=== PATIENT | male | born 1940 | race Caucasian/White ===

== ENCOUNTER 2017-07-08 12:49 | Day surgery (SDC) | payer MEDICARE ==
[2017-07-08] VITALS (7 sets, daily range): BP systolic 121–135; BP diastolic 66–74; PULSE 62–73; RESP 16–18; TEMP 97.6–98; O2SAT 93–97
[~2017-07-08] VITALS: Ht 177.8 cm; Wt 96.0 kg
[~2017-07-08 12:49] MED LIST: GLYCOPYRROLATE 1 MG/5 ML SYRINGE IV PUSH ONE; LIDOCAINE HCL 1% PF 5 ML SYRINGE OTHER ONE; NEOSTIGMINE 5 MG/5 ML SYRINGE IV PUSH ONE; PHENYLEPH/NS 1000 MCG/10 ML SYR IV ONE; PROPOFOL 200 MG/20 ML AMP IV ONE; ROCURONIUM INJ 50 MG/5 ML SYRINGE IV PUSH ONE; ePHEDrine/NS 25 MG/5 ML SYRINGE IV ONE
[2017-07-08] MEDS ORDERED: SODIUM CHLORID 0.9% 500 ML IV PRN (13:30)
[2017-07-08] MEDS ORDERED: SODIUM CHLORID 0.9% 500 ML INJ 500 ML IV SCH (13:30)
[2017-07-08] MEDS ORDERED: POVIDONE IODINE 5% (ANTISEPSIS KIT) 4 APPLICATIONS EACH NARE PRN (13:30)
[2017-07-08] MEDS ORDERED: LACTATED RINGER'S 1000 ML IV PRN (13:30)
[2017-07-08] MEDS ORDERED: CHLORHEXIDINE GLUCONATE 2 % 1 PACK (2 CLOTHS) TOPICAL PRN (13:30)
[2017-07-08] MEDS ORDERED: METOPROLOL TARTRATE 25 MG TAB PO PRN (13:30)
[2017-07-08] MEDS ORDERED: INSULIN HUMAN REGULAR 1,000 UNITS/10 ML VIAL SQ PRN (13:30)
[2017-07-08] MEDS ORDERED: LORazepam 1 MG TAB SL SCH (13:30)
[2017-07-08] MEDS ORDERED: MAGN100T2 PO (13:44)
[2017-07-08] MEDS ORDERED: FIBE625T PO (13:44)
[2017-07-08] MEDS ORDERED: FURO20TA PO (13:44)
[2017-07-08] MEDS ORDERED: JANT2.5T PO (13:44)
[2017-07-08] MEDS ORDERED: POTA10CA PO (13:44)
[2017-07-08] MEDS ORDERED: SPIR25TA PO (13:44)
[2017-07-08] MEDS ORDERED: ROSU1TAB8 PO (13:44)
[2017-07-08] MEDS ORDERED: CARV6.25 PO (13:44)
[2017-07-08] MEDS ORDERED: ASPI81TA23 PO (13:44)
[2017-07-08] MEDS ORDERED: AMIO200T PO (13:44)
[2017-07-08] MEDS ORDERED: LISI2.5T3 PO (13:44)
[2017-07-08] MEDS ORDERED: CHOL10008 PO (13:44)
[2017-07-08] MEDS ORDERED: MULT-65 PO (13:44)
[2017-07-08 13:49] LABS: AUTOMATED NEUTROPHIL # 9.8 TH/MM3 (1.8-7.7); BASOPHIL % 0.3 % (0.0-2.0); EOSINOPHIL # 0.1 TH/MM3 (0-0.4); HEMATOCRIT 46.5 % (39.0-51.0); HEMOGLOBIN 16.2 GM/DL (13.0-17.0); LYMPH % 16.3 % (9.0-44.0); LYMPHOCYTE # 2.1 TH/MM3 (1.0-4.8); MEAN CELL VOLUME 92.1 FL (80.0-100.0); MEAN CORPUSCULAR HGB CONC 34.7 % (32.0-36.0); MEAN PLATELET VOLUME 7.7 FL (7.0-11.0); MONO % 6.1 % (0.0-8.0); MONOCYTE # 0.8 TH/MM3 (0-0.9); NEUT % 76.3 % (16.0-70.0); PLATELET COUNT 237 TH/MM3 (150-450); RED BLOOD COUNT 5.05 MIL/MM3 (4.50-5.90); RED CELL DISTRIBUTION WIDTH 13.4 % (11.6-17.2); WHITE BLOOD COUNT 12.9 TH/MM3 (4.0-11.0)
[2017-07-08 14:00] LABS: INTERNATIONAL NORMALIZED RATIO 2.1 RATIO; PROTHROMBIN TIME - PATIENT 21.4 SEC (9.8-11.6)
[2017-07-08 14:06] LABS: BICARBONATE 24.9 MEQ/L (21.0-32.0); CALCIUM 8.9 MG/DL (8.5-10.1); CREATININE 0.84 MG/DL (0.60-1.30)
[2017-07-08] MEDS ORDERED: HEPARIN-NS/PF INJ 2,000 ML ONE (15:06)
[2017-07-08] MEDS ORDERED: LEVOFLOXACIN 500 MG PREMIX INJ 100 ML IV ONE (15:06)
[2017-07-08] MEDS ORDERED: ISOPROTERENOL HCL 1 MG/5 ML AMP ONE (15:31)
[2017-07-08] MEDS ORDERED: HEPARIN-D5W 25,000 U/250 ML 250 ML ONE (15:31)
[2017-07-08] MEDS ORDERED: HEPARIN SODIUM - IV 10,000 UNITS/10 ML VIAL ONE (17:19)
[2017-07-08] MEDS ORDERED: FUROSEMIDE 40 MG/4 ML VIAL ONE (17:37)
[2017-07-08] MEDS ORDERED: PROTAMINE SULFATE 50 MG/5 ML VIAL ONE (17:37)
--- NOTE | 2017-07-08 17:48 | CATHPROC ---
Travel [facility]iya HIS Report Study Information Study Number Admission Scheduled Start Study Start [id number] Jul 08 2017 12:49PM 07/08/2017 Jul 08 2017 3:02PM [place] Service Electrophysiology Study Admit Source Facility Department Other [facility] - Shift Boss Physician and Clinical Staff Initial Emmanuel Blakely Drop Forger Mabel Almeida,AIRCRAFT POWER PLANT ASSEMBLER TECH2 Other Anesthesia, TAPE SEWER Recorder Raisa Ramsey,RN Recorder Alee Cohen,YELENA Scrub Fransisca Romero,RT(R) TECH2 Procedures Performed Procedure Location (Site) Vessel Name Ablation Procedure ICE CATHETER INSERT Fem Vein (left) Femoral Vein RF Ablation LT. ATRIUM LT. [facility] Equipment Time Lead Network Architect Description Size Mfg Part Number Used/Scraped NEEDLE, TRANSSEPTAL NRG 98 [id number] 15:04 [facility] Used C1 *[id number] [employer]/ EP [id number] 15:04 KIT, TRANSDUCER / AFIB Used PACER *[id number] CATHETER, TACTICATH ABLAT BUNDLE 15:04 BUND[facility] Used 65 BUNDLE *[id number]- BUNDLE [id number] CATHETER, FR7 OPTIMA SPIRAL 15:04 BUND[facility] FR7 *[id number]- Used BUNDLE BUNDLE [id number] 15:04 BUND[employer] [facility] CATHETER, JSN, QUAD BUNDLE FR 5 *[id number]- Used BUNDLE [id number] 15:04 BUNDLE-[employer] [facility] CATHETER, JSN, QUAD BUNDLE FR 5 *[id number]- Used BUNDLE [id number] SET, COOL POINT TUBING 15:04 BUNDLE-[facility] *[id number]- Used BUNDLE BUNDLE SHEATH, FR8.5 STEERABLE SM 15:04 BUNDLE-[facility] 71CM [id number] Used 71CM BUNDLE COVER, TRANSDUCER CABLE 612-113 15:04 [employer] Used ACUNAV *[id number] 15:04 CORDIS/PACER SHEATH, FR10 ALENA 11CM FR 10 Used *[id number] 15:04 CORDIS/PACER SHEATH, FR9 ALENA 11CM FR 9 [id number] Used [id number] 15:04 [employer] PACK, CCL CUSTOM * Used *[id number] 15:04 MEDLINE PACER EL, LIMB * 2620 *[id number] Used [id number] 15:04 [facility] MEDICAL SHEATH, FR4.5 PRELUDE 11CM FR 4.5 Used [id number] 15:04 NAMIC TUBING, HIGH PRESSURE 48" 48" Used *[id number] 15:04 NAMIC TUBING, HIGH PRESSURE 48" 48" Used *[id number] 15:04 [place] [employer],WARM AIR CCL * Used *[id number] 15:04 [facility] MEDICAL ELECTRODE KIT, RUBÉN X SURFACE * Used *[id number] [id number] 15:04 [facility] MEDICAL SHEATH, EPS, FR6 FAST CATH FR 6 Used *[id number] 15:04 [facility] MEDICAL SHEATH, EPS, FR7 FAST CATH FR 7 [id number] Used [id number] 15:04 [facility] MEDICAL SHEATH, EPS, FR8 FAST CATH FR 8 Used *[id number] CATHETER, ACUNAV FR10 ICE [id number] 16:32 ANGEL LUIS FR 10 Used (ANGEL LUIS) *[id number] [facility] PAD, ELECTROSURGICAL 15:04 * [id number] *[id number] Used SURGICAL GROUNDING (BLUE) History: Allergies Allergy Reaction NKDA History: Risk Factors Hypertension Dyslipidemia Yes Yes Prior CABG Yes Labs Hgb (g/dl) Hct (%) RBC (MIL/MM3) WBC (l/cumm) Platelets (thousands) 11.60-17.00 35.00-51.00 4.00-5.90 4.00-11.00 150.00-450.00 16.0 46 5 12.9 237 Glucose (mg/dl) BUN (mg/dl) Creatinine (mg/dl) BUN:Creatinine (1:x) 74.00-106.00 7.00-18.00 0.50-1.30 10.00-20.00 94 19 0.8 23.8 Na (meq/l) K (meq/l) 136.00-145.00 3.50-5.10 137 4.1 INR (PTT:PT) 0.90-1.10 2.1 Medication Medication Total Dose (Bolus/Oral) Medication Total Dosage/Unit 1% XYLOCAINE 40 mL HEPARIN 88540 units PROTAMINE 40 mg Medications (Bolus/Oral) Medication Time Given Dosage/Unit Administered By Reason 1% XYLOCAINE 07/08/2017 4:24:34 PM 20 mL Emmanuel Haque 20 mL 1% XYLOCAINE given in lab by Emmanuel Haque in Left Groin via Subcutaneous. Ordered by Dash Haque 1% XYLOCAINE 07/08/2017 4:29:37 PM 20 mL Emmanuel Haque 20 mL 1% XYLOCAINE given in lab by Emmanuel Haque in Right Groin via Subcutaneous. Ordered by Rolly Haque. HEPARIN 07/08/2017 4:36:21 PM 13836 units Anesthesia, TAPE SEWER As per physicians ve rbal order 96439 units HEPARIN given in lab by Anesthesia, TAPE SEWER via Peripheral IV. Ordered by Emmanuel Haque. Belen son: As per physicians verbal order. HEPARIN 07/08/2017 5:20:55 PM 2000 units Anesthesia, TAPE SEWER As per physicians joshua bal order 2000 units HEPARIN given in lab by Anesthesia, TAPE SEWER via Peripheral IV. Ordered by Emmanuel Haque. Reas on: As per physicians verbal order. PROTAMINE 07/08/2017 5:37:28 PM 40 mg Anesthesia, TAPE SEWER As per physicians verb al order 40 mg PROTAMINE given in lab by Anesthesia, TAPE SEWER via Peripheral IV. Ordered by Emmanuel Haque. Reason: As per physicians verbal order. Medication (Drip) Medication Time Given Dosage/Unit Concentration/Unit Diluent (ml) Solution HEPARIN DRIP 07/08/2017 4:50:00 PM 1000 units/hr 92194 units 250 D5W 1000 units/hr HEPARIN DRIP given in lab by Anesthesia, TAPE SEWER via Peripheral IV. Pump/Drip Flow = 10 ml /hr [place] [address] units in 250 ml. Ordered by Hanscy. Shabnam Reason: As per physicians verbal order. ISUPREL 07/08/2017 5:22:00 PM 10 mcg/min 1 mg 250 NaCl .9 10 mcg/min ISUPREL given in lab by Anesthesia, TAPE SEWER via Peripheral IV. Pump/Drip Flow = 150 ml/hr usi ng NaCl .9 with a concentration of 1 mg in 250 ml. Ordered by Emmanuel Haque. Reason: As per physicians verbal order. LEVAQUIN 07/08/2017 3:30:47 PM 100 mL/hr 500 100 NaCl .9 100 mL/hr LEVAQUIN given in lab by Anesthesia, TAPE SEWER in Right Wrist via Peripheral IV. Pump/Drip Flow = 0 ml/hr using NaCl .9 with a concentration of 500 in 100 ml. Ordered by Emmanuel Haque. Reason: As per physicians verbal order. Initial Case Assessment Cardiovascular HR Rhythm NIBP Chest Pain 58 sb 130/70 0 Edema Present Skin color Skin None Normal Warm Dry Circulatory - Right Pulses Dorsalis Pedis 2 Scale (0,1,2,3,4,d) Circulatory - Left Pulses Dorsalis Pedis 2 Scale (0,1,2,3,4,d) Circulatory - Lower Extremities Color Lower Right Color Lower Left Normal Normal Neurological State Oriented to time-place- Alert Moves all extremities person Respiration - General Respiration Rate SpO2 (%) (B/min) 20 92 Final Case Assessment Cardiovascular HR Rhythm NIBP Chest Pain 86 sr 108/63 0 Edema Present Skin color Skin None Normal Warm Dry Circulatory - Right Pulses Dorsalis Pedis 2 Scale (0,1,2,3,4,d) Circulatory - Left Pulses Dorsalis Pedis 2 Scale (0,1,2,3,4,d) Circulatory - Lower Extremities Color Lower Right Color Lower Left Normal Normal Neurological State Drowsy Moves all extremities Respiration - General Respiration Rate SpO2 (%) (B/min) 14 100 Chronological Log Time Study Chronological Log 15:16:42 Patient arrived via Bed. 15:16:45 Patient Name, D.O.B, / Armband Verified By R.N. 15:16:47 Patient has been NPO for More than 6Hrs. 15:16:47 Consent signed by the physician and the patient and verified by the Shift Boss staff. 15:16:49 Pre-op and post- op instructions given; patient acknowledges understanding of instructions. 15:17:09 Presedation assessment performed by Shift Boss RN. 15:17:49 History and physical on the chart 15:17:50 Verbal Stimulation=2 Physical Stimulation=2 Airway=2 Respiration=2 TOTAL=8. (0=absent, 1=li mited, 2=present) 15:18:16 Skin Breakdown- none per pt. 15:18:25 Disposable Defibrillator Pads Placed On Patient. 15:18:34 Patient Warmer Placed on the Table. 15:18:49 Caroline Prominences Protected 15:19:45 A # 20 IV was noted in the left wrist. Grade = 0 0.9% Nacl at kvo 15:19:46 A # 20 IV was noted in the Wrist (right). Grade = 0 0.9% nacl at kvo 15:19:49 Anesthesia at bedside. Assumes care of patient. 100 mL/hr LEVAQUIN given in lab by Anesthesia, TAPE SEWER in Right Wrist via Peripheral IV. Pump/Drip Flow = 0 ml/hr 15:30:47 using NaCl .9 with a concentration of 500 in 100 ml. Ordered by Emmanuel Haque. Reason: As p er physicians verbal order. Assessment: Initial Case, HR=58 BPM, Rhythm=sb, LCRA=722/70 mmhg, Chest Pain=0, Edema=None, Col or=Normal, Skin = Warm, Dry Right Pulses: Uday Ped=2 Left Pulses: Uday Ped=2 15:34:28 Lower Right Extremities: Color=Normal Lower Left Extremities: Color=Normal Neurological: State=Alert, Ox3, LAUGHLIN Respiration: Resp=20 B/min, SpO2=92 % 15:35:06 Table restraints applied according to hospital policy 15:35:57 Anethesiologist present for intubation. #14fr hoyos inserted w/o difficulty.clear yellow ur ine obtained 15:45:19 Bilateral groins prepped with 2% chlorhexidine, and draped after a 3 minute waiting time. 15:46:03 Reference ECG taken 16:09:03 Pressure channel 1 zeroed. 16:11:59 MD paged 16:14:25 MD arrived. 16:15:42 Pt's Defibrillator disabled by [facility] tech per MD order. Time Out. Correct patient, procedure, procedure equipment, site and side verified with physicia n present. Time 16:17:10 concurred by MD, individual staff and TAPE SEWER. Time Out #2 - Consents verified, patient in correct position, all results are labled and displa yed, safety precautions 16:18:31 taken, antibiotics administered. Time out concurred by MD, individual staff and TAPE SEWER in procedu re 16:18:32 Case Start 16:19:22 ODELL in progress. 16:23:01 ODELL completed. 16:24:34 20 mL 1% XYLOCAINE given in lab by Emmanuel Haque in Left Groin via Subcutaneous. Ordered by Emmanuel Haque. 16:24:52 Vascular access was obtained in the Fem Vein (left). 16:25:03 Vascular access was obtained in the Fem Vein (left). 16:25:15 Vascular access was obtained in the Fem Vein (left). 16:25:25 Vascular access was obtained in the Fem Art (left). A SHEATH, FR4.5 PRELUDE 11CM FR 4.5 was advanced into the Fem Art (left) using the Modified Marie otilio technique. 16:26:01 connected to 0.9 ns pressure bag 16:26:40 A SHEATH, EPS, FR7 FAST CATH FR 7 was advanced into the Fem Vein (left) using the Modified Seldinger technique. 16:26:55 A SHEATH, EPS, FR6 FAST CATH FR 6 was advanced into the Fem Vein (left) using the Modified Seldinger technique. 16:27:29 A SHEATH, FR10 ALENA 11CM FR 10 was advanced into the Fem Vein (left) using the Modified S eldinger technique. 16:29:37 20 mL 1% XYLOCAINE given in lab by Emmanuel Haque in Right Groin via Subcutaneous. Ordered b Emmanuel Henry. 16:29:44 Vascular access was obtained in the Fem Vein (right). 16:29:51 A SHEATH, EPS, FR8 FAST CATH FR 8 was advanced into the Fem Vein (right) using the Modified Seldinger technique. A CATHETER, JSN, QUAD BUNDLE FR 5 was advanced vis Fem Vein (left) and placed in the CS. Placem ent was visually 16:30:41 confirmed under fluoroscopy. A CATHETER, JSN, QUAD BUNDLE FR 5 was advanced vis Fem Vein (left) and placed in the HIS. Place ment was 16:31:37 visually confirmed under fluoroscopy. 16:31:53 CATHETER, ACUNAV FR10 ICE (ANGEL LUIS) FR 10 Was Postioned. A SHEATH, FR8.5 STEERABLE SM 71CM BUNDLE 71CM was exchanged in the Fem Vein (right). This was n ecessary in 16:34:09 order for catheter support. 16:35:15 Jaclyn in 8fr steerable sheath right femoral vein 35329 units HEPARIN given in lab by Anesthesia, TAPE SEWER via Peripheral IV. Ordered by Holden Haque Reason: As per 16:36:21 physicians verbal order. 16:36:50 A eps was advanced to the right atrium and passed through the septal wall to the left atriu m. 16:36:52 Jaclyn needle out A CATHETER, FR7 OPTIMA SPIRAL BUNDLE FR7 was advanced via RT. [facility] and placed in the LA. Plac ement was 16:39:52 visually confirmed under fluoroscopy. 16:40:45 Mapping in progress. 16:42:53 Activated Clotting Time Drawn 16:49:26 ACT (Normal Range 90-180) = 331 1000 units/hr HEPARIN DRIP given in lab by Anesthesia, TAPE SEWER via Peripheral IV. Pump/Drip Flow = 10 ml/hr using 16:50:00 D5[place] [address] units in 250 ml. Ordered by Emmanuel Haque. Reason: As per phjoy manzano verbal order. 16:55:44 Mapping complete. Catheter was removed A CATHETER, TACTICATH ABLAT 65 BUNDLE was advanced vis Fem Vein (right) and placed in the LA. P lacement was 16:56:07 visually confirmed under fluoroscopy. 16:56:20 RF Ablation of the LT. ATRIUM with a CATHETER, TACTICATH ABLAT 65 BUNDLE. 17:11:00 Activated Clotting Time Drawn 17:17:28 ACT (Normal Range 90-180) = 310 2000 units HEPARIN given in lab by Anesthesia, TAPE SEWER via Peripheral IV. Ordered by Emmanuel Haque . Reason: As per 17:20:55 physicians verbal order. 10 mcg/min ISUPREL given in lab by Anesthesia, TAPE SEWER via Peripheral IV. Pump/Drip Flow = 150 ml/ hr using NaCl .9 17:22:00 with a concentration of 1 mg in 250 ml. Ordered by Emmanuel Haque. Reason: As per physicians joshua bal order. 17:32:12 Isuprel off. 17:32:49 Ablation Catheter was removed A SHEATH, FR9 ALENA 11CM FR 9 was exchanged in the Fem Vein (right). This was necessary in ord er to achieve 17:34:45 vascular hemostasis. 17:34:59 Heparin off. 40 mg PROTAMINE given in lab by Anesthesia, TAPE SEWER via Peripheral IV. Ordered by Emmanuel Haque. R shankar: As per 17:37:28 physicians verbal order. 17:38:48 All Catheter(s) removed without difficulty 17:40:03 Sheath(s) left in place, secured, 0.9ns kvo connected and will be removed in Holding Area 17:41:43 Sterile dressing applied to site 17:43:47 Ablation procedure performed: AFIB. 17:43:54 EP Procedure was performed. Assessment: Final Case, HR=86 BPM, Rhythm=sr, ZYRB=520/63 mmhg, Chest Pain=0, Edema=None, Color =Normal, Skin = Warm, Dry Right Pulses: Uday Ped=2 Left Pulses: Uday Ped=2 17:44:56 Lower Right Extremities: Color=Normal Lower Left Extremities: Color=Normal Neurological: State=Drowsy, LAUGHLIN Respiration: Resp=14 B/min, HmF0=477 % 17:45:50 Case End 17:45:51 No case complications noted. 17:45:53 Cine recording checked. 17:46:04 PACU called. Spoke to Grimm. 17:46:17 Bedside Report will be given. 17:46:59 Defibrillator and ground pads removed. Skin intact. 17:55:18 Activated Clotting Time Drawn 17:55:20 Patient moved to stretcher 17:58:00 ACT (Normal Range 90-180) = 154 End Study - Contrast Media Used In Study Contrast Total Opened (mL) Total Used (mL) Total Wasted (mL) Unspecified 0 0 0 End Study - Maximum Contrast Load Max Contrast Load (mL) 622.4 End Study - Radiation Exposure Fluoro Time (minutes) 2.4 End Study - Patient Disposition Complications Transferred To Interventional Outcome No Telemetry Bed successful
[2017-07-08] MEDS ORDERED: DO NOT ADM ANY ANTICOAGULANT DRUGS PRN (18:05)
--- NOTE | 2017-07-08 18:22 | PD.CARD ---
Atrial Fibrillation Ablation PROCEDURE DATE: Jul 08, 2017 PROCEDURES PERFORMED: 1. Electrophysiology study on Isuprel infusion 2. CS cannulation 3. 3-D mapping 4. Transseptal approach 5. Right and left heart catheterization 6. Intracardiac echo 7. Radiofrequency ablation of atrial fibrillation 8. Pulmonary vein isolation 9. Posterior wall ablation 10. Mitral line creation 11. Anterior and posterior ablation INDICATIONS FOR THE PROCEDURE Mr. Castro is a 76-year-old male with hx of congestive heart failure , coronary artery disease, mitral valve replacement, atrial fibrillation, previous defib shocks due to atrial fibrillation admits for electrophysiology study and ablation. The risks, the nature and the benefits of the procedure were clearly stated to him. The risks include pneumothorax, cardiac perforation, stroke, need for open heart surgery and even . The patient understood and agreed to proceed. DESCRIPTION OF THE PROCEDURE IN DETAIL As written informed consent was obtained prior to esophageal echocardiogram, the patient was kept on the table where he was prepped and draped in the usual sterile fashion. Conscious sedation was initiated and maintained throughout the procedure by the anesthesiologist. Once sedation was verified, the right and left inguinal areas were anesthetized with 2% Xylocaine. Using modified Seldinger technique, the left femoral vein was cannulated on three occasions, three guidewires were advanced. Over the wire a 6, 7 and a 10-Cypriot Hemaquet were advanced. Then the left femoral artery was cannulated on one occasion, one guidewire was advanced. Over the wire a 4-Cypriot Hemaquet was advanced. Then the right femoral vein was cannulated on one occasion, one guidewire was advanced. Over the wire a 8-Cypriot Hemaquet was advanced. Then under fluoroscopic guidance through the 6 and 7-Cypriot Hemaquet, two 5-Cypriot Marisabel curved quadripolar electrophysiology catheters were advanced and placed around the His as well as coronary sinus. Basic interval was measured. The patient was in sinus rhythm. Through the 10-Cypriot Hemaquet, a Cordis Valdivia AcuNav intracardiac echo catheter was advanced and placed at the right atrium. Multiple view was obtained. There is pericardial effusion, pulmonary vein was seen, atrial septal was visualized. Then the 8-Cypriot Hemaquet in the right femoral vein was exchanged for Agilis transseptal sheath that was placed all the way to the superior vena cava. Through the sheath a Katie needle was advanced, then the sheath, the dilator and the needle were progressed until foci engaged. Once engaged, the needle was advanced. RF was delivered for 2 seconds. I was able to cross into the left atrium. Once the needle crossed, the dilator was advanced. Once the dilator crossed, the sheath was advanced. Once the sheath crossed, the dilator and the needle were removed. At this point I did flood the system and fluid movement was seen in the left atrium the indicates the sheath is in good position. The patient already received 10,000 units of heparin. The goal is to keep an ACT around 350 during ablation. Then through the sheath a [facility] 20 pulse circumferential catheter was advanced. Using [employer] endocardial solution mapping system, a two-dimensional configuration of the left atrium was obtained. Points were taken at the left superior and inferior veins, right superior and inferior veins, mitral valve, and appendages. Then through the sheath a [facility] TactiCath 65cm 3.5mm irrigated tipped mapping and radiofrequency ablation catheter was advanced. Esophageal probe was placed temperature monitoring during ablation. When it increased to 0.5 degrees Celsius above baseline, I moved to a different area of the atrium. First I did isolate the left superior and inferior vein. I did make a skagway around the veins. Posterior was ablated. Then the right superior and inferior veins were isolated. I did remap the atrium. At that point I did advance the circumferential catheter again into the vein. There was no signal into the vein, pacing from the vein showed no conduction to the atrium. Isuprel infusion was initiated at 10 mcg for over 10 minutes. No tachyarrhythmia was induced, post Isuprel no tachyarrhythmia was induced. At that point the procedure was complete. All catheters were removed , atrial septal sheath was exchanged for 9-Cypriot Hemaquet, intracardiac echo showed no pericardial effusion. There is still good flow in the pulmonary vein. The patient is going to be transferred to the recovery room. No incident report. The patient tolerated the procedure. Blood loss was minimal. FINDINGS 1. Electrocardiogram: At baseline the patient was in sinus rhythm. Post procedure electrocardiogram was unchanged. 2. Basic interval: Base cycle length was around 840. AH at 96 and HV at 46 milliseconds. 3. Tachyarrhythmia: Atrial fibrillation was mapped and ablated. The ablation was successful. CONCLUSION Successful electrophysiology study, mapping, radiofrequency ablation of atrial fibrillation, pulmonary vein isolation, posterior ablation, mitral line creation. COMMENTS AND RECOMMENDATIONS The patient is going to be transferred to the telemetry unit. Will be observed and when stable can be discharged home. Emmanuel Haque MD Jul 08, 2017 18:22
[2017-07-08] MEDS ORDERED: ONDANSETRON HCL 4 MG/2 ML VIAL IV PUSH PRN (18:30)
[2017-07-08] MEDS ORDERED: LIDOCAINE HCL 1% 50 ML VIAL INFIL PRN (18:30)
[2017-07-08] MEDS ORDERED: SODIUM CHLOR 0.9% 250 ML INJ 250 ML IV PRN (18:30)
[2017-07-08] MEDS ORDERED: LORazepam 2 MG/ML VIAL IV PUSH PRN (18:30)
[2017-07-08] MEDS ORDERED: BACITRACIN OINT 0.9 GM PKT TOP ONE (18:30)
[2017-07-08] MEDS ORDERED: oxyCODONE/ACETAMINOPHEN 5 MG/325 MG TAB PO PRN ×2 (18:30)
[2017-07-08] MEDS ORDERED: ATROPINE SULFATE 1 MG/ML VIAL IV PUSH PRN (18:30)
[2017-07-08] MEDS ORDERED: WARFARIN SOD 2.5 MG TAB PO SCH (18:30)
[2017-07-08] MEDS ORDERED: MAGNESIUM CITRATE SOLN 300 ML BTL PO PRN (18:30)
[2017-07-08] MEDS ORDERED: PILL SPLITTER OTHER PRN (18:45)
[2017-07-08] MEDS: FUROSEMIDE 20 MG TAB PO SCH (21:17)
[2017-07-08] MEDS: CARVEDILOL 6.25 MG TAB PO SCH (21:18)
[2017-07-09] VITALS (10 sets, daily range): BP systolic 115–118; BP diastolic 61–62; PULSE 57–87; RESP 16–17; TEMP 97.7–98.4; O2SAT 94–96
[2017-07-09 06:12] LABS: INTERNATIONAL NORMALIZED RATIO 2.1 RATIO; PROTHROMBIN TIME - PATIENT 21.5 SEC (9.8-11.6)
[2017-07-09] MEDS ORDERED: CEPH-460 PO (08:03)
--- NOTE | 2017-07-09 08:07 | PD.CARD.PN ---
Subjective Subjective Remarks Feels okay. Objective Medications Current Medications Medications (Trade) Dose Ordered Sig/Riky Route Start Time Stop Time Status Last Admin Sodium Chloride 500 ml @ 30 mls/hr [id number] IV 07/08/17 13:30 (Ativan) 1 mg FILTER PRESS TENDER HEAD SL 07/08/17 13:30 07/11/17 13:29 (Percocet 5-325 Mg) 1 tab Q4H PRN PO 07/08/17 18:30 (Percocet 5-325 Mg) 2 tab Q4H PRN PO 07/08/17 18:30 (Ativan Inj) 0.5 mg UNSCH PRN IV PUSH 07/08/17 18:30 07/09/17 18:29 (Atropine Inj) 0.5 mg UNSCH PRN IV PUSH 07/08/17 18:30 Sodium Chloride 250 ml @ 500 mls/hr ONCE PRN IV 07/08/17 18:30 07/09/17 18:29 (Zofran Inj) 4 mg Q4H PRN IV PUSH 07/08/17 18:30 (Xylocaine 1% Inj (50 ml)) 10 ml UNSCH PRN INFIL 07/08/17 18:30 07/09/17 18:29 (Cordarone) 200 mg DAILY PO 07/09/17 09:00 (Ecotrin Ec) 81 mg DAILY PO 07/09/17 09:00 (Coreg) 6.25 mg BID PO 07/08/17 21:00 07/08/17 21:18 (Vitamin D3) 1,000 units DAILY PO 07/09/17 09:00 (Lasix) 20 mg BID PO 07/08/17 21:00 07/08/17 21:17 (KCl) 10 meq DAILY PO 07/09/17 09:00 (Aldactone) 25 mg DAILY PO 07/09/17 09:00 (Coumadin) 2.5 mg DAILY@1600 PO 07/08/17 18:30 07/08/17 21:18 (Prinivil) 2.5 mg DAILY PO 07/09/17 09:00 (Citroma Liq) 100 ml DAILY PRN PO 07/08/17 18:30 (Theragran) 1 tab DAILY PO 07/09/17 09:00 (Lipitor) 40 mg DAILY PO 07/09/17 09:00 (Pill Splitter) 1 ea UNSCH PRN OTHER 07/08/17 18:45 Miscellaneous Information ALL NURSING DEPARTME... UNSCH PRN .XX 07/08/17 18:05 07/09/17 18:04 Vital Signs / I&O Vital Signs Date Time Temp Pulse Resp B/P (MAP) Pulse Ox O2 Delivery O2 Flow Rate FiO2 07/09/17 07:00 71 07/09/17 07:00 97.7 68 17 118/62 (80) 96 07/09/17 06:00 67 07/09/17 05:00 57 07/09/17 04:00 58 07/09/17 03:00 61 07/09/17 03:00 98.4 61 16 115/61 (79) 94 07/09/17 02:00 61 07/09/17 01:00 63 07/09/17 00:00 67 07/08/17 23:30 98.0 68 16 121/66 (84) 93 07/08/17 23:00 68 07/08/17 22:00 73 07/08/17 21:00 72 07/08/17 20:00 64 07/08/17 19:45 97.6 64 16 132/74 (93) 97 07/08/17 19:10 62 16 95 Room Air 07/08/17 19:00 97.8 61 16 135/75 (95) 95 Room Air 07/08/17 18:45 60 16 134/72 (92) 94 Room Air 07/08/17 18:30 58 16 133/78 (96) 100 Nasal Cannula 3 07/08/17 18:15 57 16 136/81 (99) 99 Nasal Cannula 3 07/08/17 18:05 58 16 135/72 (93) 98 Nasal Cannula 3 07/08/17 18:00 98.5 60 20 141/74 (96) 97 Nasal Cannula 3 07/08/17 13:32 97.7 62 18 135/73 (93) 95 I/O 07/08/17 07/08/17 07/08/17 07/09/17 07/09/17 07/09/17 07:00 15:00 23:00 07:00 15:00 23:00 Intake Total 1200 ml Output Total 1200 ml 1400 ml Balance -1200 ml -200 ml Intake Oral 1200 ml Output Urine Total 1200 ml 1400 ml # Bowel Movements 0 Physical Exam GENERAL: Well-nourished, well-developed patient. SKIN: Warm and dry. Groin site soft without bruising or bleeding HEAD: Normocephalic. EYES: No scleral icterus. No injection or drainage. NECK: Supple, trachea midline. No JVD or lymphadenopathy. CARDIOVASCULAR: Regular rate and rhythm without murmurs, gallops, or rubs. RESPIRATORY: Breath sounds equal bilaterally. No accessory muscle use. GASTROINTESTINAL: Abdomen soft, non-tender, nondistended. EXTREMITIES: No cyanosis, or edema. NEUROLOGICAL: Awake, alert, and oriented x 3. Non-focal. Laboratory Laboratory Tests Test 07/08/17 11:24 07/09/17 05:43 White Blood Count 12.9 TH/MM3 Red Blood Count 5.05 MIL/MM3 Hemoglobin 16.2 GM/DL Hematocrit 46.5 % Mean Corpuscular Volume 92.1 FL Mean Corpuscular Hemoglobin 32.0 PG Mean Corpuscular Hemoglobin Concent 34.7 % Red Cell Distribution Width 13.4 % Platelet Count 237 TH/MM3 Mean Platelet Volume 7.7 FL Neutrophils (%) (Auto) 76.3 % Lymphocytes (%) (Auto) 16.3 % Monocytes (%) (Auto) 6.1 % Eosinophils (%) (Auto) 1.0 % Basophils (%) (Auto) 0.3 % Neutrophils # (Auto) 9.8 TH/MM3 Lymphocytes # (Auto) 2.1 TH/MM3 Monocytes # (Auto) 0.8 TH/MM3 Eosinophils # (Auto) 0.1 TH/MM3 Basophils # (Auto) 0.0 TH/MM3 CBC Comment DIFF FINAL Differential Comment Prothrombin Time 21.4 SEC 21.5 SEC Prothromb Time International Ratio 2.1 RATIO 2.1 RATIO Activated Partial Thromboplast Time 31.5 SEC 30.1 SEC Blood Urea Nitrogen 19 MG/DL Creatinine 0.84 MG/DL Random Glucose 94 MG/DL Calcium Level 8.9 MG/DL Sodium Level 137 MEQ/L Potassium Level 4.1 MEQ/L Chloride Level 106 MEQ/L Carbon Dioxide Level 24.9 MEQ/L Anion Gap 6 MEQ/L Estimat Glomerular Filtration Rate 89 ML/MIN Assessment and Plan Problem List: (1) Atrial fibrillation ICD Codes: I48.91 - Unspecified atrial fibrillation Plan: Normal sinus rhythm on telemetry status post A. fib ablation. (2) S/P ablation of atrial fibrillation ICD Codes: Z98.890 - Other specified postprocedural states; Z86.79 - Personal history of other diseases of the circulatory system Plan: Groin sites stable. INR 2.1. Discharge home. Follow-up with Dr. figueroa in 3 weeks per my discussion with him. Problem Qualifiers (1) Atrial fibrillation: Qualified Codes: I48.0 - Paroxysmal atrial fibrillation Libia Andrade Jul 09, 2017 08:07
[2017-07-09] MEDS: CARVEDILOL 6.25 MG TAB PO SCH (08:37)
[2017-07-09] MEDS: FUROSEMIDE 20 MG TAB PO SCH (08:38)
[2017-07-09] MEDS ORDERED: POTASSIUM CHLORIDE 10 MEQ CAP PO SCH (09:00)
[2017-07-09] MEDS ORDERED: ATORVASTATIN 40 MG TAB PO SCH (09:00)
[2017-07-09] MEDS ORDERED: LISINOPRIL 5 MG TAB PO SCH (09:00)
[2017-07-09] MEDS ORDERED: SPIRONOLACTONE 25 MG TAB PO SCH (09:00)
[2017-07-09] MEDS ORDERED: MULTIVITAMIN TAB PO SCH (09:00)
[2017-07-09] MEDS ORDERED: CHOLECALCIFEROL (VIT D3) 1000 UNIT TAB PO SCH (09:00)
[2017-07-09] MEDS ORDERED: ASPIRIN EC 81 MG TABEC PO SCH (09:00)
[2017-07-09] MEDS ORDERED: AMIODARONE 200 MG TAB PO SCH (09:00)
--- NOTE | 2017-07-10 23:15 | EKG ---
Date Performed: 07/09/2017 Time Performed: 05:42:14 PTAGE: 76 years EKG: Sinus rhythm Prolonged QT interval Possible lateral infarct - age undetermined Possible anteroseptal infarct - ag e undetermined Inferior ST-T changes are nonspecific Abnormal ECG PREVIOUS TRACING : 07/08/2017 19.00 DOCTOR: Emmanuel Haque Interpretating Date/Time 07/10/2017 23:15:02
--- NOTE | 2017-07-10 23:38 | EKG ---
Date Performed: 07/08/2017 Time Performed: 19:00:15 PTAGE: 76 years EKG: Sinus rhythm ANTEROLATERAL MYOCARDIAL INFARCTION , OF INDETERMINATE AGE ABNORMAL ECG PREVIOUS TRACING : 07/08/2017 13.39 DOCTOR: Emmanuel Haque Interpretating Date/Time 07/10/2017 23:37:01
--- NOTE | 2017-07-10 23:55 | EKG ---
Date Performed: 07/08/2017 Time Performed: 13:39:06 PTAGE: 76 years EKG: Sinus bradycardia. Prolonged QT interval Possible anteroseptal infarct - age undetermined I nferior/lateral ST-T changes may be due to myocardial ischemia Abnormal ECG NO PREVIOUS TRACING DOCTOR: Emmanuel Haque Interpretating Date/Time 07/10/2017 23:53:52
== END 2017-07-09 09:57 | disposition home or self-care (01) ==
LOC: HDIC 12:49 → HDOC 12:49 → HCPC 22:14 → HDOC 07-09 09:57
PROVIDERS: ATTEND Internal Medicine Interventional Cardiology
DX: I48.0 Paroxysmal atrial fibrillation (principal); I11.0 Hypertensive heart disease with heart failure; I50.22 Chronic systolic (congestive) heart failure; I25.2 Old myocardial infarction; Z95.810 Presence of automatic (implantable) cardiac defibrillator; Z87.891 Personal history of nicotine dependence; Z79.01 Long term (current) use of anticoagulants
CPT/HCPCS: 00537; 80048; 85002; 85025; 85610; 85730; 86850; 86900; 86901; 93005; 93312; 93320; 93325; 93613; 93623; 93656; 93662; C1730; C1731; C1732; C1759; C1766; C2630; J1644; J1940; J1956; J2370; J2710; J2720; J3010; 93619